=== PATIENT | male | born 1955 | race Caucasian/White ===

== ENCOUNTER 2022-10-27 08:09 | Day surgery (SDC) | payer MEDICARE ==
[2022-10-27] MEDS ORDERED: LACTATED RINGERS 1,000 ML IV ONE ×2 (09:01→09:44)
--- NOTE | 2022-10-27 09:36 | ANESTHESIA ---
Pre-Anesthesia VS, & Labs - Diagnosis screening - Procedure colonoscopy Vital Signs: Temp Pulse Resp BP Pulse Ox O2 Flow Rate 36 C L 69 14 162/104 H 98 10/27/22 08:17 10/27/22 08:17 10/27/22 08:17 10/27/22 08:17 10/27/22 08:17 Height: 5 ft 10 in Weight (kg): 94 kg Body Mass Index: 29.7 BMI Classification: Overweight - NPO >8 hours - Lab Results Lab results reviewed: Yes Home Medications and Allergies Home Medications: Ambulatory Orders No Known Home Medications 10/27/22 No Known Home Medications 10/27/22 Allergies/Adverse Reactions: Allergies Allergy/AdvReac Type Severity Reaction Status Date / Time morphine AdvReac Nausea Verified 10/27/22 09:00 Anes History & Medical History - Anesthetic History Anesthesia Complications: reports: No previous complications Family history of Anesthesia Complications: Denies Family history of Malignant Hyperthermia: Denies - Medical History Cardiovascular: reports: Hypertension Pulmonary: reports: Other Gastrointestinal: reports: Other Urinary: reports: None Musculoskeletal: reports: Osteoarthritis, Chronic back pain Endocrine/Autoimmune: reports: None Skin: reports: None - Surgical History General: reports: Other Eyes Ears Nose Throat (EENT): reports: Cataracts Orthopedic: reports: Arthroscopic surgery Exam General: Alert, Oriented x3, Cooperative Dental: WNL Mouth Openin Fingerbreadth Neck Mobility: Normal Mallampati classification: II Thyromental Distance: 4-6 cm Respiratory: Lungs clear, No respiratory distress Cardiovascular: Regular rate Neurological: Normal speech Cognitive Status: Within normal limits Plan Anesthesia Type: Total IV Consent for Procedure(s) Verified and Reviewed: Yes Code Status: Attempt Resuscitation ASA classification: 2-Mild systemic disease Is this case an emergency?: No
[2022-10-27] MEDS ORDERED: PROPOFOL 500 MG/50 ML 500 MG/50 ML VIAL ONE (09:37)
[2022-10-27] MEDS ORDERED: PROPOFOL 200 MG/20 ML VIAL IVP ONE (09:37)
[2022-10-27 10:31] LABS: HCT - HEMATOCRIT 42.5 % (42.0-52.0); MEAN CORPUSCULAR HEMOGLOBIN 30.8 pg (27.0-31.0); MEAN CORPUSCULAR HGB CONC 32.9 g/dL (32.0-36.0); MEAN CORPUSCULAR VOLUME 93.6 fL (80.0-94.0); MEAN PLATELET VOLUME 8.9 fL (7.4-11.4); RED BLOOD COUNT 4.54 10^6/uL (4.70-6.10); RED CELL DISTRIBUTION WIDTH 12.5 % (12.0-15.0); WHITE BLOOD COUNT 5.8 x10^3/uL (4.8-10.8)
[2022-10-27 10:47] LABS: ALBUMIN 4.1 g/dL (3.2-5.5); ALBUMIN/GLOBULIN RATIO 1.4 (1.0-2.2); ALKALINE PHOSPHATASE 87 IU/L (42-121); ALT ALANINE AMINOTRANSFERASE 21 IU/L (10-60); AST ASPARTATE AMINOTRANSFERASE 23 IU/L (10-42); BILIRUBIN,TOTAL 0.7 mg/dL (0.2-1.0); BUN - BLOOD UREA NITROGEN 12 mg/dL (6-20); CALCIUM 9.6 mg/dL (8.5-10.3); CARBON DIOXIDE - CO2 30 mmol/L (21-32); CHLORIDE 104 mmol/L (101-111); CREATININE 0.9 mg/dL (0.6-1.3); GFR - MDRD 84 (>89); GLUCOSE 104 mg/dL (74-104); IONIZED CALCIUM IF INDICATED NO; POTASSIUM 4.5 mmol/L (3.5-4.5); SODIUM 138 mmol/L (135-145)
--- NOTE | 2022-10-27 11:12 | ANESTHESIA POST OP EVALUATION ---
Anesthesia Post Eval - Post Anesthesia Eval Vitals: Last Vital Signs Temp 36.2 C L 10/27/22 10:33 Pulse 57 L 10/27/22 10:33 Resp 15 10/27/22 10:33 BP 139/82 H 10/27/22 10:33 Pulse Ox 99 10/27/22 10:33 O2 Flow Rate CV Function Including HR & BP: Stable Pain Control: Satisfactory Nausea & Vomiting: Negative Mental Status: Baseline Respiratory Status: Airway Patent Hydration Status: Satisfactory Anesthesia Complications: None
[2022-10-27 11:23] VITALS: BP 148/89; O2SAT 98
--- NOTE | 2022-10-27 15:31 | CT Report ---
PROCEDURE: CHEST W INDICATIONS: colon mass CONTRAST: 100ml omni 300 TECHNIQUE: After the administration of intravenous contrast, 1 mm axial images were acquired from the pulmonary apices through the posterior costophrenic angles. Axial 5 mm soft tissue kernel reconstructions were performed as well as 8 mm axial MIP and coronal and sagittal 5 mm reformations. For radiation dose reduction, the following was used: automated exposure control, adjustment of mA and/or kV according to patient size. COMPARISON: None. FINDINGS: Image quality: Excellent. Lungs and pleura: No consolidation. There is irregular thickening of the anterolateral right lower pl eural surface and several linear areas of coarse intrinsic calcification. No pleural effusion. No briana picious pulmonary nodules which require follow up. Mediastinum: Heart size is normal. No pericardial effusion. No large vessel abnormality. No mediastin al adenopathy by size criteria. No anterior or posterior mediastinal mass. Normal esophagus without hiatal hernia Chest wall and lower neck: No supraclavicular adenopathy by size. No lower neck adenopathy. Normal th yroid gland. No chest wall masses. Mild overall chest wall likely loss on the right, possibly remote postsurgical/posttraumatic. Bones: No aggressive osseous abnormality.Prior right 10th rib resection. Thoracic spine bridging oste ophytosis. Upper Abdomen: Dictated separately IMPRESSION: 1. No evidence of metastatic disease in the chest. 2. Normal postsurgical/posttraumatic or infectious changes along the right anterolateral pleural surf vic including right 10th rib arc resection and overall volume loss. Correlate with history. Reviewed by: Leanne Swanson MD on 10/27/2022 3:30 PM PDT Approved by: Leanne Swanson MD on 10/27/2022 3:30 PM PDT Station ID: [id number]
--- NOTE | 2022-10-27 15:41 | CT Report ---
PROCEDURE: ABDOMEN/PELVIS W INDICATIONS: colon mass CONTRAST: 100ml omni 300 TECHNIQUE: After the administration of oral and intravenous contrast, 5 mm thick sections acquired from the diap hragms to the symphysis. 5 mm thick coronal and sagittal reformats were acquired. For radiation dos e reduction, the following was used: automated exposure control, adjustment of mA and/or kV accordin g to patient size. COMPARISON: None FINDINGS: Image quality: Excellent. Lung bases and heart: Dictated separately Liver: Mild diffuse hepatic steatosis. No suspicious liver mass. Gallbladder and biliary tree: Normal gallbladder. Biliary tree nondilated. Spleen: No splenomegaly. Pancreas: Normal size. No pancreatic ductal dilatation. Scattered punctate calcifications throughout glandular pancreas chronic pancreatitis. Adrenals: No adrenal nodule. Kidneys and ureters: No hydronephrosis. No renal cystic lesion which requires follow up. No solid mas s. Normal ureters. Bowel and peritoneum: Liquid stool in much of the colon. Moderate sigmoid diverticulosis. Presumed pr imary proximal rectal mass in the upper pelvis. The stomach is decompressed. Small bowel loops are wi thin normal limits. No free fluid or free air. Lymph nodes: No significant mesenteric or retroperitoneal lymph nodes. Vessels: Normal vasculature. PELVIS Reproductive organs: Normal size prostate gland. Bladder: Normal. Pelvic lymph nodes: No bulky pelvic adenopathy. Bones: No suspicious bone lesions. Moderate bilateral hip joint degeneration. Other: No significant ventral or inguinal hernia. IMPRESSION: 1. Findings in the proximal rectum suspicious for primary malignancy. 2. No visible adjacent or regional adenopathy. 3. Mild diffuse hepatic steatosis without findings of metastatic disease. Reviewed by: Leanne Swanson MD on 10/27/2022 3:39 PM PDT Approved by: Leanne Swanson MD on 10/27/2022 3:39 PM PDT Station ID: [id number]
[2022-10-28] MEDS ORDERED: iohexoL-300 100 ML VIAL IVP ONE (00:24)
[2022-10-28] MEDS ORDERED: DIATRIZOATE MEGLU/DIATRIZO SOD 30 ML BOTTLE PO ONE (00:25)
== END 2022-10-27 08:10 | disposition home or self-care (01) ==
LOC: SDS 08:09
PROVIDERS: ATTEND Surgery
PROC: 0DBN8ZX Excision of Sigmoid Colon, Via Natural or Artificial Opening Endoscopic, Diagnostic (ICD-10-PCS; principal; 2022-10-27 09:30)
DX: C19 Malignant neoplasm of rectosigmoid junction (principal); I10 Essential (primary) hypertension
CPT/HCPCS: 36415; 45380; 71260; 74177; 80053; 85027; J7120; Q9963; Q9967

== ENCOUNTER 2023-02-18 10:58 | Outpatient (CLI) | payer MEDICARE | END 2023-02-18 10:59 | disposition home or self-care (01) | LOC: LAB.S 10:58 | PROVIDERS: ATTEND Urology | DX: R97.20 Elevated prostate specific antigen [PSA] (principal) | CPT/HCPCS: 36415; 84153 ==